=== PATIENT | male | born 1990 ===

== ENCOUNTER → 2018-04-03 21:37 | Outpatient (REF) | payer OTHER, SELFPAY ==
[2018-04-03 21:43] LABS: Add Manual Diff / Slide Review NO; Basophils Percent Auto 1.2 %; Eosinophils Percent Auto 0.8 %; Hematocrit 36.4 %; Hemoglobin 11.9 g/dL; Lymphocytes Percent Auto 33.9 %; Mean Corpuscular HGB Conc 32.7 %; Mean Corpuscular Hemoglobin 30.6 PG; Mean Corpuscular Volume 93.6 fL; Monocytes Percent Auto 4.7 %; Neutrophils Absolute Auto 3500 /uL; Neutrophils Percent Auto 59.4 %; Platelet Count 246 X10^3/uL; Red Blood Cell Count 3.89 X10^6/uL; Red Cell Distribution Width 14.3 %; White Blood Cell Count 5.9 X10^3/uL
[2018-04-03 22:07] LABS: Alanine Aminotransferase 36 IU/L; Albumin 4.4 g/dL; Albumin Globulin Ratio 1.5; Alkaline Phosphatase 73 U/L; Aspartate Aminotransferase 33 IU/L; Bilirubin Total 0.4 mg/dL; Blood Urea Nitrogen 12 mg/dL; Calcium 9.5 mg/dL; Carbon Dioxide 28 mmol/L; Chloride 102 mmol/L; Cholesterol 160 mg/dL; Estimated Glomerular Filt Rate > 60.0 mL/min; Glucose 84 mg/dL; HDL Cholesterol 93 mg/dL; HEMOLYSIS < 15; LDL Cholesterol Calculated 59 mg/dL; Potassium 4.5 mmol/L; Sodium 139 mmol/L; Total Protein 7.4 g/dL; Triglycerides 42 mg/dL
[2018-04-03 22:38] LABS: Thyroid Stimulating Hormone 2.49 uIU/mL
== END ==
LOC: LAB 21:37
PROVIDERS: Visit Provider Naturopath
DX: Z00.00 Encounter for general adult medical examination without abnormal findings (principal)
CPT/HCPCS: 80053; 80061; 84443; 85025